=== PATIENT | female | born 2000 | race Caucasian/White ===

== ENCOUNTER 2022-06-21 01:44 | Emergency (ER) | payer MEDICAID ==
[2022-06-21] MEDS ORDERED: Ketorolac 30 MG/ML SDV IM STA ×2 (02:11→04:18)
== END 2022-06-21 04:40 | disposition home or self-care (01) ==
LOC: MW.ED 01:44
DX: R10.2 Pelvic and perineal pain (principal); Z88.6 Allergy status to analgesic agent; Z88.5 Allergy status to narcotic agent
CPT/HCPCS: 76830; 81003; 96372; 99284; J1885

== ENCOUNTER 2022-10-18 09:09 | Emergency (ER) | payer SELFPAY ==
[2022-10-18] MEDS ORDERED: Ondansetron 4 MG/2 ML SDV IVPUSH ONE (09:41)
[2022-10-18] MEDS ORDERED: Sodium Chloride 0.9% 1,000 ML IV ONE (09:41)
[2022-10-18] MEDS ORDERED: Ketorolac 30 MG/ML SDV IVPUSH ONE (09:41)
[2022-10-18] MEDS ORDERED: HYDROmorphone 1 MG/ML Syringe IVPUSH ONE (10:31)
[2022-10-18 10:37] LABS: CARBON DIOXIDE,CO2 28.6 mmol/L (21.0-32.0); POTASSIUM,K 3.8 mmol/L (3.5-5.1)
== END 2022-10-18 12:06 | disposition home or self-care (01) ==
LOC: MW.ED 09:09
DX: R10.32 Left lower quadrant pain (principal); Z88.6 Allergy status to analgesic agent; Z88.8 Allergy status to other drugs, medicaments and biological substances; Z88.5 Allergy status to narcotic agent; Z90.49 Acquired absence of other specified parts of digestive tract; Z90.710 Acquired absence of both cervix and uterus
CPT/HCPCS: 36415; 76857; 80053; 80305; 81003; 83690; 83735; 84703; 85025; 96361; 96374; 96375; 99284; J1170; J1885; J2405; J7030

== ENCOUNTER 2022-10-21 20:04 | Observation (INO) | payer SELFPAY ==
[2022-10-21] MEDS ORDERED: Sodium Chloride 0.9% 1,000 ML IV ONE (21:45)
[2022-10-21] MEDS ORDERED: Ondansetron 4 MG/2 ML SDV IVPUSH ONE (21:45)
[2022-10-21 22:00] LABS: CARBON DIOXIDE,CO2 23.2 mmol/L (21.0-32.0); POTASSIUM,K 3.6 mmol/L (3.5-5.1)
[2022-10-21] MEDS ORDERED: HYDROmorphone 1 MG/ML Syringe IVPUSH ONE (22:05)
[2022-10-21] MEDS ORDERED: HYDROmorphone 2 MG/ML Syringe IVPUSH ONE (22:37)
[2022-10-21] MEDS ORDERED: Iopamidol 755 MG/ML 500 ML Multipack Bottle IVPUSH STA (23:11)
[2022-10-22] MEDS ORDERED: Ondansetron 4 MG/2 ML SDV IVPUSH PRN (02:24)
[2022-10-22] MEDS ORDERED: HYDROmorphone 1 MG/ML Syringe IVPUSH PRN (02:30)
[2022-10-22] MEDS ORDERED: Heparin Sodium 5,000 Units/ML Vial SUBCUT SCH (03:00)
[2022-10-22] MEDS: Acetaminophen/HYDROcodone 325-5 MG Tab PO PRN ×2 (03:24→19:47)
[2022-10-22] MEDS: Sodium Chloride 0.9% 1,000 ML IV SCH ×3 (03:27→19:49)
[2022-10-22 06:57] LABS: CARBON DIOXIDE,CO2 23.4 mmol/L (21.0-32.0); POTASSIUM,K 3.4 mmol/L (3.5-5.1)
[2022-10-22] MEDS ORDERED: Pantoprazole 40 MG in Sodium Chloride 0.9% 10 ML IVPUSH ONE (09:05)
[2022-10-22] MEDS: Promethazine 25 MG/ML SDV IM PRN ×2 (09:06→17:45)
[2022-10-22] MEDS: Enoxaparin 40 MG/0.4 ML Syringe SUBCUT SCH (11:53)
[2022-10-22] MEDS ORDERED: Sodium Chloride 0.9% 2.5 ML Syringe FLUSH PRN (21:54)
[2022-10-22] MEDS ORDERED: Sodium Chloride 0.9% 10 ML Syringe FLUSH PRN (21:54)
[2022-10-23 06:46] LABS: CARBON DIOXIDE,CO2 21.1 mmol/L (21.0-32.0); POTASSIUM,K 3.8 mmol/L (3.5-5.1)
[2022-10-23] MEDS: Enoxaparin 40 MG/0.4 ML Syringe SUBCUT SCH (13:16)
== END 2022-10-23 12:00 | disposition home or self-care (01) ==
LOC: MW.ED 20:04 → MW.MS 10-22
PROVIDERS: ADMIT Internal Medicine; ATTEND Internal Medicine
DX: K52.9 Noninfective gastroenteritis and colitis, unspecified (principal); U07.1 COVID-19; K21.9 Gastro-esophageal reflux disease without esophagitis; Z88.5 Allergy status to narcotic agent; Z88.8 Allergy status to other drugs, medicaments and biological substances; Z90.49 Acquired absence of other specified parts of digestive tract; Z90.711 Acquired absence of uterus with remaining cervical stump; Z87.42 Personal history of other diseases of the female genital tract
CPT/HCPCS: 36415; 74177; 74177-26; 80048; 80053; 81003; 81025; 83690; 85025; 85027; 96361; 96372; 96374; 96375; 96376; 99221; 99238; 99284; 99285-25; A9270-GY; C9113; G0378; J1170; J1644; J1650; J2405; J2550; J3490; J7030; Q9967; U0002

== ENCOUNTER 2023-02-26 06:31 | Day surgery (SDC) | payer MEDICAID ==
[~2023-02-26 06:31] MED LIST: Lactated Ringers 1,000 ML IV SCH; Scopolamine 1.5 MG Transdermal Patch TOP ONE
[2023-02-26] MEDS ORDERED: Lidocaine 1% 50 ML MDV ONE (07:29)
[2023-02-26] MEDS ORDERED: Bupivacaine 0.5% 30 ML SDV ONE (07:29)
[2023-02-26] MEDS ORDERED: Bacitracin Oint 28.35 GM Tube ONE (07:30)
[2023-02-26] MEDS ORDERED: Lidocaine 2% 11 ML Jelly Filled Syringe ONE (07:44)
[2023-02-26] MEDS ORDERED: Lidocaine 2% 5 ML SDV ONE (07:44)
[2023-02-26] MEDS ORDERED: Dexamethasone 4 MG/ML 5 ML MDV ONE (07:44)
[2023-02-26] MEDS ORDERED: Ondansetron 4 MG/2 ML SDV ONE (07:44)
[2023-02-26] MEDS ORDERED: Ketorolac 30 MG/ML SDV ONE (07:44)
[2023-02-26] MEDS ORDERED: Propofol 200 MG/20 ML SDV ONE (07:45)
[2023-02-26] MEDS ORDERED: fentaNYL 100 MCG/2 ML SDV ONE (07:45)
[2023-02-26] MEDS ORDERED: propofoL 50 ML ONE (07:46)
[2023-02-26] MEDS ORDERED: Midazolam 1 MG/ML 2 ML SDV ONE (08:04)
[2023-02-26] MEDS ORDERED: Ondansetron 4 MG/2 ML SDV IVPUSH PRN (08:20)
[2023-02-26] MEDS ORDERED: fentaNYL 50 MCG/ML SDV IVPUSH PRN (08:20)
[2023-02-26] MEDS ORDERED: Metoclopramide 10 MG/2 ML SDV IVPUSH PRN (08:20)
[2023-02-26] MEDS ORDERED: Morphine 2 MG/ML SYRINGE IVPUSH PRN (08:20)
[2023-02-26] MEDS ORDERED: Naloxone 0.4 MG/ML SDV IVPUSH PRN (08:20)
[2023-02-26] MEDS ORDERED: Albuterol 0.083% 2.5 MG/3 ML Neb Soln NEB PRN (08:20)
[2023-02-26] MEDS ORDERED: droPERidol 5 MG/2 ML SDV IVPUSH PRN (08:20)
[2023-02-26] MEDS ORDERED: Acetaminophen/HYDROcodone 325-5 MG Tab PO PRN (08:51)
[2023-02-26] MEDS ORDERED: Lactated Ringers 1,000 ML IV SCH (09:00)
[2023-02-26] MEDS: HYDROmorphone 1 MG/ML Syringe IVPUSH PRN ×2 (09:21→09:53)
[2023-02-26] MEDS ORDERED: diphenhydrAMINE 50 MG/ML SDV ONE (09:50)
[2023-02-26] MEDS ORDERED: diphenhydrAMINE 50 MG/ML SDV IVPUSH ONE (09:51)
== END 2023-02-26 11:05 | disposition home or self-care (01) ==
LOC: MW.SDS 06:31
PROVIDERS: ATTEND Surgery
DX: D17.1 Benign lipomatous neoplasm of skin and subcutaneous tissue of trunk (principal); F41.9 Anxiety disorder, unspecified; F32.A Depression, unspecified; K51.90 Ulcerative colitis, unspecified, without complications; N83.209 Unspecified ovarian cyst, unspecified side; K21.9 Gastro-esophageal reflux disease without esophagitis; M54.9 Dorsalgia, unspecified; G89.29 Other chronic pain; J45.909 Unspecified asthma, uncomplicated; F17.210 Nicotine dependence, cigarettes, uncomplicated; Z88.5 Allergy status to narcotic agent; Z88.8 Allergy status to other drugs, medicaments and biological substances; Z91.048 Other nonmedicinal substance allergy status; Z79.899 Other long term (current) drug therapy; Z90.49 Acquired absence of other specified parts of digestive tract; Z98.890 Other specified postprocedural states
CPT/HCPCS: 21930; A9270; J1100; J1170; J1200; J1885; J2001; J2250; J2270; J2704; J3490; J7120; J2405; J3010

== ENCOUNTER 2023-05-19 19:22 | Emergency (ER) | payer MEDICAID ==
[2023-05-19] MEDS ORDERED: Ketorolac 30 MG/ML SDV IM ONE (21:02)
== END 2023-05-19 21:20 | disposition home or self-care (01) ==
LOC: MW.ED 19:22
DX: H66.91 Otitis media, unspecified, right ear (principal); K21.9 Gastro-esophageal reflux disease without esophagitis; Z79.899 Other long term (current) drug therapy; Z98.890 Other specified postprocedural states; Z88.5 Allergy status to narcotic agent; Z91.048 Other nonmedicinal substance allergy status; Z88.6 Allergy status to analgesic agent; Z88.8 Allergy status to other drugs, medicaments and biological substances; Z91.018 Allergy to other foods; Z90.710 Acquired absence of both cervix and uterus; Z90.49 Acquired absence of other specified parts of digestive tract
CPT/HCPCS: 96372; 99282; J1885; 99283

== ENCOUNTER 2023-12-15 15:30 | Emergency (ER) | payer MEDICAID ==
[2023-12-15 15:50] LABS: BASOPHILS ABSOLUTE AUTO 0.08 K/uL (0.00-0.20); BASOPHILS PERCENT AUTO 1.1 % (0.0-1.0); EOSINOPHILS PERCENT AUTO 1.4 % (0.0-6.0); HEMATOCRIT 42.9 % (37.0-47.0); IMMATURE GRAN ABSOLUTE AUTO 0.01 K/uL (0.00-0.05); IMMATURE GRAN PERCENT AUTO 0.1 % (0.0-0.4); LYMPHOCYTES ABSOLUTE AUTO 3.02 K/uL (1.00-4.80); LYMPHOCYTES PERCENT AUTO 42.7 % (24.0-44.0); MEAN CORPUSCULAR HEMOGLOBIN 31.2 pg (28.0-32.0); MEAN CORPUSCULAR VOLUME 89.2 fL (83.0-99.0); MEAN PLATELET VOLUME 8.6 fL (9.4-12.3); MONOCYTES ABSOLUTE AUTO 0.49 K/uL (0.00-0.80); MONOCYTES PERCENT AUTO 6.9 % (0.0-8.0); NEUTROPHILS ABSOLUTE AUTO 3.37 K/uL (1.80-7.70); NEUTROPHILS PERCENT AUTO 47.8 % (41.0-71.0); PLATELET COUNT,PLT 387 K/uL (150-400); RED BLOOD CELL COUNT 4.81 M/uL (4.10-5.30); WHITE BLOOD CELL COUNT,WBC 7.07 K/uL (3.9-11.3)
[2023-12-15 16:23] LABS: A/G RATIO 1.1 (0.9-1.6); ALBUMIN 4.3 g/dL (3.4-5.0); BILIRUBIN TOTAL 0.3 mg/dL (0.2-1.0); CALCIUM 9.5 mg/dL (8.5-10.1); CARBON DIOXIDE,CO2 24.3 mmol/L (21.0-32.0); EST CRCL DRUG DOSING (CG) 49.69 mL/min; POTASSIUM,K 3.6 mmol/L (3.5-5.1); PROTEIN TOTAL,TP 8.3 g/dL (6.4-8.2)
[2023-12-15 17:24] LABS: BILIRUBIN,URINE NEGATIVE (NEGATIVE); COLOR,URINE YELLOW; GLUCOSE,URINE NEGATIVE (NEGATIVE); KETONES,URINE NEGATIVE (NEGATIVE); LEUKOCYTE ESTERASE,URINE NEGATIVE (NEGATIVE); NITRITE,URINE NEGATIVE (NEGATIVE); OCCULT BLOOD,URINE NEGATIVE (NEGATIVE); PH,URINE 7.5 (5.0-8.0); PROTEIN,URINE NEGATIVE (NEGATIVE); UROBILINOGEN,URINE 0.2 EU/dL (<2.0)
[2023-12-15 17:25] LABS: APPEARANCE,URINE HAZY
== END 2023-12-15 17:49 | disposition home or self-care (01) ==
LOC: MW.ED 15:30
DX: R10.2 Pelvic and perineal pain (principal); J45.909 Unspecified asthma, uncomplicated; Z88.5 Allergy status to narcotic agent; Z88.6 Allergy status to analgesic agent; Z91.041 Radiographic dye allergy status; Z91.018 Allergy to other foods; Z91.048 Other nonmedicinal substance allergy status; Z88.8 Allergy status to other drugs, medicaments and biological substances; Z75.8 Other problems related to medical facilities and other health care; Z90.49 Acquired absence of other specified parts of digestive tract; Z90.710 Acquired absence of both cervix and uterus
CPT/HCPCS: 36415; 76856; 76856-26; 80053; 81003; 85025; 99283; 99284

== ENCOUNTER 2023-12-22 06:52 | Emergency (ER) | payer MEDICAID ==
[2023-12-22 07:27] LABS: BASOPHILS PERCENT AUTO 1.1 % (0.0-1.0); EOSINOPHILS ABSOLUTE AUTO 0.17 K/uL (0.00-0.45); EOSINOPHILS PERCENT AUTO 1.9 % (0.0-6.0); HEMATOCRIT 46.5 % (37.0-47.0); HEMOGLOBIN 16.5 g/dL (12.0-16.0); IMMATURE GRAN ABSOLUTE AUTO 0.02 K/uL (0.00-0.05); IMMATURE GRAN PERCENT AUTO 0.2 % (0.0-0.4); LYMPHOCYTES ABSOLUTE AUTO 3.37 K/uL (1.00-4.80); LYMPHOCYTES PERCENT AUTO 37.3 % (24.0-44.0); MEAN CORPUSCULAR HGB CONC 35.5 g/dL (32.0-36.0); MEAN CORPUSCULAR VOLUME 90.3 fL (83.0-99.0); MEAN PLATELET VOLUME 8.8 fL (9.4-12.3); MONOCYTES ABSOLUTE AUTO 0.52 K/uL (0.00-0.80); MONOCYTES PERCENT AUTO 5.8 % (0.0-8.0); NEUTROPHILS ABSOLUTE AUTO 4.86 K/uL (1.80-7.70); NEUTROPHILS PERCENT AUTO 53.7 % (41.0-71.0); PLATELET COUNT,PLT 366 K/uL (150-400); RED BLOOD CELL COUNT 5.15 M/uL (4.10-5.30); WHITE BLOOD CELL COUNT,WBC 9.04 K/uL (3.9-11.3)
[2023-12-22] MEDS: Sodium Chloride 0.9% 1,000 ML IV STA (07:33)
[2023-12-22] MEDS: Sodium Chloride 0.9% 10 ML Syringe FLUSH PRN (07:33)
[2023-12-22] MEDS: Sodium Chloride 0.9% 2.5 ML Syringe FLUSH PRN (07:33)
[2023-12-22] MEDS: Ondansetron 4 MG/2 ML SDV IVPUSH ONE (07:33)
[2023-12-22 08:00] LABS: A/G RATIO 1.2 (0.9-1.6); ALBUMIN 4.5 g/dL (3.4-5.0); BILIRUBIN TOTAL 1.2 mg/dL (0.2-1.0); CALCIUM 9.8 mg/dL (8.5-10.1); CARBON DIOXIDE,CO2 22.3 mmol/L (21.0-32.0); CREATININE 1.1 mg/dL (0.6-1.0); EST CRCL DRUG DOSING (CG) 46.06 mL/min; POTASSIUM,K 3.9 mmol/L (3.5-5.1); PROTEIN TOTAL,TP 8.3 g/dL (6.4-8.2)
[2023-12-22] MEDS: Ketorolac 30 MG/ML SDV IVPUSH ONE (08:43)
== END 2023-12-22 09:31 | disposition home or self-care (01) ==
LOC: MW.ED 06:52
DX: R19.7 Diarrhea, unspecified (principal); R11.2 Nausea with vomiting, unspecified; Z88.6 Allergy status to analgesic agent; Z91.048 Other nonmedicinal substance allergy status; Z88.5 Allergy status to narcotic agent; Z91.018 Allergy to other foods; Z88.8 Allergy status to other drugs, medicaments and biological substances; Z79.899 Other long term (current) drug therapy; Z90.49 Acquired absence of other specified parts of digestive tract; Z75.8 Other problems related to medical facilities and other health care
CPT/HCPCS: 36415; 80053; 83690; 84703; 85025; 96361; 96374; 96375; 99284; J1885; J2405; J3490; J7030

== ENCOUNTER 2024-04-05 03:55 | Emergency (ER) | payer MEDICAID ==
[2024-04-05] MEDS: Ketorolac 30 MG/ML SDV IM ONE (04:23)
[2024-04-05] MEDS: Benzocaine 20% Topical Spray UD MUCMEM ONE (04:27)
[2024-04-05] MEDS: Lidocaine 2% Viscous Solution 15 ML UD PO ONE (04:27)
[2024-04-05] MEDS: Acetaminophen 500 MG Tab PO ONE (04:28)
== END 2024-04-05 04:43 | disposition home or self-care (01) ==
LOC: MW.ED 03:55
DX: K02.9 Dental caries, unspecified (principal); J45.909 Unspecified asthma, uncomplicated; Z90.49 Acquired absence of other specified parts of digestive tract; Z90.710 Acquired absence of both cervix and uterus; Z79.899 Other long term (current) drug therapy; Z91.018 Allergy to other foods; Z88.5 Allergy status to narcotic agent; Z88.8 Allergy status to other drugs, medicaments and biological substances; Z91.048 Other nonmedicinal substance allergy status
CPT/HCPCS: 96372; 99282; A9270; J1885